=== PATIENT | female | born 1935 | race Caucasian/White ===

== ENCOUNTER → 2017-11-14 11:39 | Outpatient (CLI) | payer OTHER ==
[~2017-11-14 11:39] MED LIST: ADVIL100 M1 PO; ALTACE10 MG PO; AMITRIPTYLINE H10 MG PO; BANOPHEN25 MG PO; GABAPENTIN800 MG PO; IODINE TP; JENTADUETO XR1 EACH PO; LAMOTRIGINE PO; PROTECT CARDIO1 EAC1 PO; ZOCOR40 MG PO
== END | disposition home or self-care (01) ==
LOC: RAD 11:39
DX: I10 Essential (primary) hypertension (principal)

== ENCOUNTER 2017-11-15 07:07 | Day surgery (SDC) | payer OTHER | END 2017-11-15 14:25 | disposition home or self-care (01) | LOC: CIR.AMB 07:07 | DX: B02.29 Other postherpetic nervous system involvement (principal) ==